=== PATIENT | female | born 1970 | race Caucasian/White ===

== ENCOUNTER 2017-06-01 12:09 | Outpatient (CLI) | payer OTHER | END 2017-06-01 14:01 | disposition home or self-care (01) | LOC: MAMO-SONO 12:09 | DX: E04.1 Nontoxic single thyroid nodule (principal); N60.11 Diffuse cystic mastopathy of right breast; N60.12 Diffuse cystic mastopathy of left breast; Z12.31 Encounter for screening mammogram for malignant neoplasm of breast ==

== ENCOUNTER 2017-06-05 13:34 | Outpatient (CLI) | payer OTHER | END 2017-06-05 13:42 | disposition home or self-care (01) | LOC: SONOGRAMA 13:34 | DX: N60.11 Diffuse cystic mastopathy of right breast (principal); N60.12 Diffuse cystic mastopathy of left breast ==

== ENCOUNTER → 2017-06-05 17:27 | Outpatient (CLI) | payer OTHER | END | disposition home or self-care (01) | LOC: LAB 17:27 | DX: N61.0 Mastitis without abscess (principal) ==

== ENCOUNTER 2017-06-18 09:20 | Outpatient (CLI) | payer OTHER | END 2017-06-18 12:13 | disposition home or self-care (01) | LOC: SONOGRAMA 09:20 | DX: E04.2 Nontoxic multinodular goiter (principal) ==

== ENCOUNTER 2017-07-03 08:20 | Outpatient (CLI) | payer OTHER ==
[2017-07-06] MEDS ORDERED: SYNTHROID50 MCG (08:24)
== END 2017-07-03 08:29 | disposition home or self-care (01) ==
LOC: SONOGRAMA 08:20
DX: N60.11 Diffuse cystic mastopathy of right breast (principal); N60.12 Diffuse cystic mastopathy of left breast

== ENCOUNTER 2017-07-03 10:53 | Outpatient (CLI) | payer OTHER ==
[2017-07-06] MEDS ORDERED: SYNTHROID50 MCG (08:24)
== END 2017-07-03 11:02 | disposition home or self-care (01) ==
LOC: LAB 10:53
DX: N61.1 Abscess of the breast and nipple (principal); N61.0 Mastitis without abscess

== ENCOUNTER → 2017-07-06 | Day surgery (SDC) | payer OTHER ==
[~2017-07-06] VITALS: Ht 162.6 cm; Wt 45.4 kg
[~2017-07-06] MED LIST: SYNTHROID50 MCG
== END | disposition home or self-care (01) ==
LOC: ER 08:05 → CIR.AMB 09:46
DX: L76.32 Postprocedural hematoma of skin and subcutaneous tissue following other procedure (principal)

== ENCOUNTER 2017-09-29 10:15 | Outpatient (CLI) | payer OTHER | END 2017-09-29 17:00 | disposition home or self-care (01) | LOC: SONOGRAMA 10:15 | DX: R59.0 Localized enlarged lymph nodes (principal) ==

== ENCOUNTER 2017-10-20 08:59 | Outpatient (CLI) | payer OTHER | END 2017-10-20 09:32 | disposition home or self-care (01) | LOC: SONOGRAMA 08:59 | DX: R10.2 Pelvic and perineal pain (principal); N95.0 Postmenopausal bleeding ==

== ENCOUNTER 2017-11-10 09:32 | Outpatient (CLI) | payer OTHER | END 2017-11-10 09:42 | disposition home or self-care (01) | LOC: SONOGRAMA 09:32 | DX: N64.4 Mastodynia (principal) ==

== ENCOUNTER 2018-03-16 15:14 | Outpatient (CLI) | payer OTHER | END 2018-03-16 18:00 | disposition home or self-care (01) | LOC: TOM 15:14 | DX: J32.0 Chronic maxillary sinusitis (principal) ==

== ENCOUNTER 2018-03-18 12:51 | Outpatient (CLI) | payer OTHER | END 2018-03-18 13:00 | disposition home or self-care (01) | LOC: LAB 12:51 | DX: N20.0 Calculus of kidney (principal); Z51.81 Encounter for therapeutic drug level monitoring ==

== ENCOUNTER 2018-03-18 14:27 | Outpatient (CLI) | payer OTHER | END 2018-03-18 15:00 | disposition home or self-care (01) | LOC: MRI 14:27 | DX: R42 Dizziness and giddiness (principal); R51 Headache | CPT/HCPCS: 70553 ==

== ENCOUNTER 2018-04-22 11:35 | Outpatient (CLI) | payer OTHER | END 2018-04-22 11:36 | disposition home or self-care (01) | LOC: SONOGRAMA 11:35 | DX: E04.8 Other specified nontoxic goiter (principal) ==

== ENCOUNTER → 2018-10-21 | Outpatient (CLI) | payer OTHER | END | disposition home or self-care (01) | LOC: MAMO-SONO 12:57 | DX: Z12.31 Encounter for screening mammogram for malignant neoplasm of breast (principal); Z87.898 Personal history of other specified conditions; R16.0 Hepatomegaly, not elsewhere classified; N60.11 Diffuse cystic mastopathy of right breast ==

== ENCOUNTER 2018-11-01 12:40 | Outpatient (CLI) | payer OTHER | END 2018-11-01 13:07 | disposition home or self-care (01) | LOC: SONOGRAMA 12:40 | DX: N60.11 Diffuse cystic mastopathy of right breast (principal); N60.12 Diffuse cystic mastopathy of left breast ==

== ENCOUNTER 2019-02-03 14:33 | Outpatient (CLI) | payer OTHER | END 2019-02-03 14:45 | disposition home or self-care (01) | LOC: NUCLEAR 14:33 | DX: I33.9 Acute and subacute endocarditis, unspecified (principal) ==

== ENCOUNTER 2019-03-16 08:39 | Outpatient (CLI) | payer OTHER | END 2019-03-16 08:47 | disposition home or self-care (01) | LOC: SONOGRAMA 08:39 → MAMO-SONO 08:45 → SONOGRAMA 08:47 | DX: K80.00 Calculus of gallbladder with acute cholecystitis without obstruction (principal) ==

== ENCOUNTER 2019-06-27 13:38 | Outpatient (CLI) | payer OTHER | END 2019-06-27 13:50 | disposition home or self-care (01) | LOC: MRI 13:38 | DX: M25.572 Pain in left ankle and joints of left foot (principal); E04.8 Other specified nontoxic goiter | CPT/HCPCS: 73721 ==

== ENCOUNTER 2023-03-25 13:26 | Outpatient (CLI) | payer OTHER | END 2023-03-25 13:47 | disposition home or self-care (01) | LOC: SONOGRAMA 13:26 | PROVIDERS: ATTEND Family Medicine | DX: S23.41XA Sprain of ribs, initial encounter (principal) ==